=== PATIENT | male | born 1995 | race Caucasian/White ===

== ENCOUNTER 2017-05-19 11:09 | Emergency (ER) | payer OTHER | END 2017-05-19 13:20 | disposition home or self-care (01) | LOC: ER 11:09 | DX: S83.92XA Sprain of unspecified site of left knee, initial encounter (principal); M25.562 Pain in left knee; W19.XXXA Unspecified fall, initial encounter; F17.210 Nicotine dependence, cigarettes, uncomplicated; Z88.0 Allergy status to penicillin | CPT/HCPCS: 73564; 99070; 99283 ==